=== PATIENT | female | born 1960 | race Hispanic/Latino ===

== ENCOUNTER 2018-06-14 15:24 | Emergency (ER) | payer MEDICARE | END 2018-06-14 17:01 | disposition home or self-care (01) | LOC: EDH 15:24 | DX: S52.592A Other fractures of lower end of left radius, initial encounter for closed fracture (principal); Z86.73 Personal history of transient ischemic attack (TIA), and cerebral infarction without residual deficits; W18.39XA Other fall on same level, initial encounter; Y93.89 Activity, other specified; Y92.098 Other place in other non-institutional residence as the place of occurrence of the external cause; Y99.8 Other external cause status | CPT/HCPCS: 29125; 73110 ==

== ENCOUNTER 2019-04-26 23:29 | Emergency (ER) | payer MEDICARE ==
[2019-04-26 23:44] LABS: BASOPHILS % (AUTO) 1.1 % (0.0-5.0); EOSINOPHILS % (AUTO) 8.7 % (0.0-8.0); HEMATOCRIT 41.6 % (36-48); MEAN CORPUSCULAR HEMOGLOBIN 31.9 pg (27.0-33.0); MEAN CORPUSCULAR HGB CONC 34.7 g/dL (32.0-36.0); MEAN CORPUSCULAR VOLUME 91.9 fL (79-99); MONOCYTES % (AUTO) 8.4 % (3.0-13.0); NEUTROPHILS % (AUTO) 49.8 % (40.0-77.0); NUCLEATED RED BLOOD CELLS 0.1 % (0.0-0.19); PLATELET COUNT (AUTO) 242 K/uL (130-400); RED BLOOD CELL COUNT(AUTO) 4.52 MIL/uL (4.00-5.50); RED CELL DISTRIBUTION WIDTH 13.8 % (11.0-15.5); WHITE BLOOD COUNT (AUTO) 7.3 K/uL (4.8-10.8)
[2019-04-26 23:53] LABS: CREATININE 0.6 mg/dL (0.5-1.5); POTASSIUM 3.2 mmol/L (3.5-5.1)
[2019-04-27 00:07] LABS: ALBUMIN 3.7 g/dL (3.5-5.0); BILIRUBIN,TOTAL 0.3 mg/dL (0.2-1.0); THYROID STIMULATING HORMONE 3.48 uIU/mL (0.36-3.74); TOTAL PROTEIN, SERUM 7.3 g/dL (6.0-8.3)
== END 2019-04-27 00:32 | disposition home or self-care (01) ==
LOC: EDH 23:29
DX: R79.89 Other specified abnormal findings of blood chemistry (principal); I10 Essential (primary) hypertension; E78.5 Hyperlipidemia, unspecified; E07.9 Disorder of thyroid, unspecified; Z86.73 Personal history of transient ischemic attack (TIA), and cerebral infarction without residual deficits
CPT/HCPCS: 36415; 80053; 83735; 84436; 84443; 85025

== ENCOUNTER 2023-08-10 10:29 | Emergency (ER) | payer MEDICARE ==
[~2023-08-10] VITALS: Ht 177.8 cm; Wt 93.0 kg
[2023-08-10] MEDS ORDERED: IBUP-2070 PO (13:55)
[2023-08-10 15:04] VITALS: BP 118/65; PULSE 70; RESP 16; O2SAT 95
== END 2023-08-10 15:17 | disposition home or self-care (01) ==
LOC: EDH 10:29
DX: S20.212A Contusion of left front wall of thorax, initial encounter (principal); M25.512 Pain in left shoulder; E78.00 Pure hypercholesterolemia, unspecified; I10 Essential (primary) hypertension; Z86.73 Personal history of transient ischemic attack (TIA), and cerebral infarction without residual deficits; W18.39XA Other fall on same level, initial encounter; Y93.89 Activity, other specified; Y92.89 Other specified places as the place of occurrence of the external cause; Y99.8 Other external cause status
CPT/HCPCS: 71045; 73030

== ENCOUNTER 2023-11-12 10:22 | Day surgery (SDC) | payer MEDICARE ==
[2023-11-10 15:27] LABS: BASOPHILS # (AUTO) 0.05 K/uL (0.00-0.20); BASOPHILS % (AUTO) 0.9 % (0.0-5.0); EOSINOPHILS # (AUTO) 0.15 K/uL (0.00-0.70); EOSINOPHILS % (AUTO) 2.6 % (0.0-8.0); HEMATOCRIT 42.3 % (36-48); IMMATURE GRANULOCYTE ABSOLUTE 0.02 K/uL (0-1); LYMPHOCYTES # (AUTO) 2.4 K/uL (1.0-4.8); LYMPHOCYTES % (AUTO) 40.5 % (21.0-51.0); MEAN CORPUSCULAR HEMOGLOBIN 32.2 pg (27.0-33.0); MEAN CORPUSCULAR HGB CONC 34.8 g/dL (32.0-36.0); MEAN CORPUSCULAR VOLUME 92.8 fL (79-99); MONOCYTES # (AUTO) 0.5 K/uL (0.1-1.0); MONOCYTES % (AUTO) 8.8 % (3.0-13.0); NEUTROPHILS # (AUTO) 2.8 K/uL (1.8-7.7); NEUTROPHILS % (AUTO) 46.9 % (40.0-77.0); PLATELET COUNT (AUTO) 209 K/uL (130-400); RED BLOOD CELL COUNT(AUTO) 4.56 MIL/uL (4.00-5.50); RED CELL DISTRIBUTION WIDTH 12.3 % (11.0-15.5); WHITE BLOOD COUNT (AUTO) 5.9 K/uL (4.8-10.8)
[2023-11-10 15:43] LABS: CREATININE 0.6 mg/dL (0.5-1.5); POTASSIUM 3.7 mmol/L (3.5-5.1)
[2023-11-10 15:45] LABS: INR <= 0.93 (0.85-1.15); PROTHROMBIN TIME 10.3 SEC (9.6-11.6)
[2023-11-10 15:46] LABS: PARTIAL THROMBOPLASTIN TIME 28.4 SEC (26.3-35.5)
[2023-11-10 16:20] LABS: APPEARANCE,URINE CLEAR (CLEAR); BILIRUBIN,URINE NEGATIVE (NEGATIVE); COLOR,URINE YELLOW (YELLOW); GLUCOSE, URINE (UA) NEGATIVE (NEGATIVE); KETONES,URINE 5 mg/dL (NEGATIVE); LEUKOCYTE ESTERASE ,URINE NEGATIVE Leu/uL (NEGATIVE); NITRATE,URINE NEGATIVE (NEGATIVE); OCCULT BLOOD,URINE NEGATIVE (NEGATIVE); PROTEIN,URINE NEGATIVE (NEGATIVE); UROBILINOGEN,URINE 0.2 mg/dL (0.2-1.0)
[2023-11-10 16:21] LABS: ADD UA MICROSCOPIC YES
[2023-11-10 16:23] LABS: MUCUS,URINE RARE LPF (None Seen); RBC,URINE 0-1 /HPF (0-1); SQUAMOUS EPITHELIAL CELL,UR RARE /HPF (0-2)
[2023-11-10 16:39] VITALS: BP 123/73; PULSE 73; RESP 16
[2023-11-10 17:56] LABS: B-TYPE NATRIURETIC PEPTIDE 48 pg/mL (0-100)
[~2023-11-12] VITALS: Ht 175.3 cm; Wt 87.0 kg
[2023-11-12] VITALS (9 sets, daily range): BP systolic 104–137; BP diastolic 66–79; PULSE 63–74; RESP 12–16
[~2023-11-12 10:22] MED LIST: AMLO-258 PO; CARV3.12 PO; DIPH25CA53 PO; DIVA250T45 PO; DIVA500T52 PO; ESCI-8 PO; LATA2.5D14 OU; LEVE10006 PO; MVI PO; OMEP40CA21 PO; ROSU10TA28 PO
[2023-11-12] MEDS: 0.9%NACL 1000ML 1,000 ML IV ONE (11:13)
[2023-11-12] MEDS ORDERED: NICARDIPINE 25MG INJ IV ONE (12:50)
[2023-11-12] MEDS ORDERED: FENTANYL CITRATE PF 50 MCG/1 ML 2ML VIAL ONE (12:50)
[2023-11-12] MEDS ORDERED: SODIUM BICARB 50MEQ 50ML VIAL 50 ML ONE (12:50)
[2023-11-12] MEDS ORDERED: LIDOCAINE HCL 400MG/20ML VIAL ONE (12:50)
[2023-11-12] MEDS ORDERED: IOHEXOL-350 75 ML VIAL IV ONE (12:50)
[2023-11-12] MEDS ORDERED: HEPARIN 10,000 UNIT/10ML (1,000 UNIT/ML) VIAL ONE (12:50)
[2023-11-12] MEDS ORDERED: MIDAZOLAM HCL 1 MG/ML 2ML VIAL ONE (12:50)
[2023-11-12] MEDS ORDERED: NITROGLYCERIN 50MG VIAL ONE (12:54)
[2023-11-12] MEDS ORDERED: IOHEXOL-350 50ML VIAL IV ONE (13:24)
[2023-11-12] MEDS ORDERED: 0.9% NACL 500ML IV.SOLN 500 ML IV SCH (14:00)
== END 2023-11-12 17:35 | disposition home or self-care (01) ==
LOC: DAH 10:22
PROVIDERS: ATTEND Internal Medicine Cardiovascular Disease
DX: R94.39 Abnormal result of other cardiovascular function study (principal); I25.10 Atherosclerotic heart disease of native coronary artery without angina pectoris; I10 Essential (primary) hypertension; E78.5 Hyperlipidemia, unspecified; E03.9 Hypothyroidism, unspecified; Z79.01 Long term (current) use of anticoagulants; Z79.899 Other long term (current) drug therapy; Z98.890 Other specified postprocedural states; Z86.73 Personal history of transient ischemic attack (TIA), and cerebral infarction without residual deficits; Z98.51 Tubal ligation status; Z82.3 Family history of stroke; Z83.3 Family history of diabetes mellitus
CPT/HCPCS: 80048; 83880; 85025; 85610; 85730; 81001; 36415; 71045; 93005; 93458; C1894 ×2; C1760; J3490 ×4; J7030; J2250; J1644; Q9967 ×2; A4215; A4335; A4222; A4221; A4663; A4216; A4606; A4223 ×3; A4554; 96360; 96361; 99156; 99157; J3010

== ENCOUNTER 2024-04-11 16:03 | Emergency (ER) | payer MEDICARE ==
[~2024-04-11] VITALS: Ht 175.3 cm; Wt 90.7 kg
[~2024-04-11 16:03] MED LIST changes: -DIPH25CA53 PO; -MVI PO; -ROSU10TA28 PO; +ROSU10TA72 PO
[2024-04-11 17:00] VITALS: BP 132/73; PULSE 75; RESP 18; O2SAT 96
[2024-04-11 17:07] LABS: BASOPHILS # (AUTO) 0.05 K/uL (0.00-0.20); BASOPHILS % (AUTO) 0.7 % (0.0-5.0); EOSINOPHILS # (AUTO) 0.14 K/uL (0.00-0.70); EOSINOPHILS % (AUTO) 2.1 % (0.0-8.0); HEMATOCRIT 42.6 % (36-48); IMMATURE GRANULOCYTE ABSOLUTE 0.02 K/uL (0-1); LYMPHOCYTES # (AUTO) 1.8 K/uL (1.0-4.8); LYMPHOCYTES % (AUTO) 26.5 % (21.0-51.0); MEAN CORPUSCULAR HEMOGLOBIN 30.6 pg (27.0-33.0); MEAN CORPUSCULAR HGB CONC 34.3 g/dL (32.0-36.0); MEAN CORPUSCULAR VOLUME 89.3 fL (79-99); MONOCYTES # (AUTO) 0.6 K/uL (0.1-1.0); MONOCYTES % (AUTO) 9.5 % (3.0-13.0); NEUTROPHILS # (AUTO) 4.1 K/uL (1.8-7.7); NEUTROPHILS % (AUTO) 60.9 % (40.0-77.0); PLATELET COUNT (AUTO) 220 K/uL (130-400); RED BLOOD CELL COUNT(AUTO) 4.77 MIL/uL (4.00-5.50); RED CELL DISTRIBUTION WIDTH 13.5 % (11.0-15.5); WHITE BLOOD COUNT (AUTO) 6.7 K/uL (4.8-10.8)
[2024-04-11 17:18] LABS: CREATININE 0.8 mg/dL (0.5-1.0); POTASSIUM 3.1 mmol/L (3.5-5.1)
[2024-04-11] MEDS ORDERED: CYCL10TA16 PO (19:00)
[2024-04-11] MEDS: POTASSIUM CHLORIDE 10MEQ SR TAB PO ONE (19:42)
== END 2024-04-11 19:54 | disposition home or self-care (01) ==
LOC: EDH 16:03
DX: S92.354A Nondisplaced fracture of fifth metatarsal bone, right foot, initial encounter for closed fracture (principal); R51.9 Headache, unspecified; M54.2 Cervicalgia; M25.561 Pain in right knee; E78.00 Pure hypercholesterolemia, unspecified; I10 Essential (primary) hypertension; F32.A Depression, unspecified; J45.909 Unspecified asthma, uncomplicated; Z79.899 Other long term (current) drug therapy; Z98.890 Other specified postprocedural states; W07.XXXA Fall from chair, initial encounter; Y93.89 Activity, other specified; Y92.89 Other specified places as the place of occurrence of the external cause; Y99.8 Other external cause status
CPT/HCPCS: 36415; 70450; 71045; 72125; 72170; 73552; 73564; 73590; 73610; 80048; 85025